=== PATIENT | female | born 1970 | race Caucasian/White ===

== ENCOUNTER → 2022-05-12 | Day surgery (SDC) | payer BC ==
[~2022-05-12] VITALS: Ht 165.1 cm; Wt 70.3 kg
[~2022-05-12] MED LIST: ONE-DAILY MULT1 EAC1 PO; PROBIOTIC250 MG PO; VICODIN 500 MG-1 TAB PO; WELLBUTRIN XL300 MG PO
[2022-05-12 08:00] VITALS: BP 138/86
[2022-05-12 10:05] VITALS: BP 121/82
[2022-05-12 10:20] VITALS: BP 120/77
== END | disposition home or self-care (01) ==
LOC: SDC 05-08 12:30
PROVIDERS: ATTEND Specialist
DX: H65.493 Other chronic nonsuppurative otitis media, bilateral (principal); H69.83 Other specified disorders of Eustachian tube, bilateral; H90.8 Mixed conductive and sensorineural hearing loss, unspecified; F32.A Depression, unspecified; F17.210 Nicotine dependence, cigarettes, uncomplicated; Z85.828 Personal history of other malignant neoplasm of skin; J30.9 Allergic rhinitis, unspecified; Z79.899 Other long term (current) drug therapy